=== PATIENT | male | born 1965 | race African-American/Black ===

== ENCOUNTER 2024-10-25 08:37 | Emergency (ER) | payer MEDICAID, OTHER ==
[~2024-10-25] VITALS: Ht 177.8 cm; Wt 83.4 kg
--- NOTE | 2024-10-25 09:07 | ED.PDOC ---
History of Present Illness HPI Comments 59 year old male with a a Hx of HTN, and Recent Back Surgery presents to the ED for the c/c of Right Flank pain. Pt states that he had Back Surgery 1x month ago, but has since stopped complying w/ his pain medication 2x weeks ago, because they make him "constipated". Pt notes that he has not been able to def ecate for the past few days, even notes of taking laxatives with no results. Pt notes of no alleviating factors, but a worsening factor of movement/sitting straight. No other symptoms or modifying factors reported at this time. Chief Complaint: Abdominal Pain Time Seen by MD: 09:01 Reviewed Notes: Nurses Notes, Medications, Allergies Allergies: Coded Allergies: Ibuprofen (Verified Allergy, Unknown, 10/25/24) Information Source: Patient Mode of Arrival: Wheelchair Severity: Moderate Timing: Days Duration: Since onset, Days Prehospital treatment: None Past Medical History PAST MEDICAL HISTORY: HTN Surgical History: Hernia Repair Family History Family History: Unknown Social History Smoker: Non-Smoker Alcohol: Denies ETOH Use Drugs: Denies Drug Use Lives In: Home Constitutional: denies: chills, diaphoresis, fatigue, fever, malaise, sweats, weakness, others EENTM: denies: blurred vision, double vision, ear bleeding, ear discharge, ear drainage, ear pain, ear ringing, eye pain, eye redness, hearing loss, mouth pain, mouth swelling, nasal discharge, nose bleeding, nose congestion, nose pain, photophobia, tearing, throat pain, throat swelling, voice changes, others Respiratory: denies: cough, hemoptysis, orthopnea, SOB at rest, shortness of breath, SOB with excertion, stridor, wheezing, others Cardiovascular: denies: chest pain, dizzy spells, diaphoresis, Dyspnea on exertion, edema, irregular heart beat, left arm pain, lightheadedness, palpitations, PND, syncope, others Gastrointestinal: denies: abdomen distended, abdominal pain, blood streaked bowels, constipated, diarrhea, dysphagia, difficulty swallowing, hematemesis, melena, nausea, poor appetite, poor fluid intake, rectal bleeding, rectal pain, vomiting, others Genitourinary: reports: flank pain; denies: burning, dysuria, frequency, hematuria, incontinence, penile discharge, penile sore, pain, testicle pain, testicle swelling, urgency, others Neurological: denies: dizziness, fainting, headache, left sided numbness, left sided weakness, numbness, paresthesia, pre-existing deficit, right sided numbness, right sided weakness, seizure, speech problems, tingling, tremors, weakness, others Musculoskeletal: reports: back pain; denies: gout, joint pain, joint swelling, muscle pain, muscle stiffness, neck pain, others Integumetry: denies: bruises, change in color, change in hair/nails, dryness, laceration, lesions, lumps, rash, wounds, others Allergic/Immunocompromised: denies: Difficulty Healing, Frequent Infections, Hives, Itching, others Hematologic/Lymphatic: denies: anemia, blood clots, easy bleeding, easy bruising, swollen glands, others Endocrine: denies: excessive hunger, excessive sweating, excessive thirst, excessive urination, flushing, intolerance to cold, intolerance to heat, unexplained weight gain, unexplained weight loss, others Psychiatric: denies: anxiety, bipolar disorder, depression, hopeless, panic disorder, schizophrenia, sleepless, suicidal, others All Other Systems: Reviewed and Negative Physical Exam General Appearance: Moderate Distress, Normal HEENT: Normal ENT Inspection, PERRL/EOMI, Pharynx Normal, TMs Normal Neck: Full Range of Motion, Non-Tender, Normal Respiratory: Chest Non-Tender, Lungs Clear, No Accessory Muscle Use, No Respiratory Distress, Normal Breath Sounds Cardiovascular: No Edema, No JVD, No Murmur, Normal Peripheral Pulses, Regular Rate/Rhythm Breast Exam: Deferred Gastrointestinal: No Pulsatile Mass, Normal Bowel Sounds, RLQ, Soft, Tenderness (RLQ), Other (Right CVA tenderness) Genitalia: Deferred Pelvic: Deferred Rectal: Deferred Extremities: No calf tenderness, Normal capillary refill, Normal inspection, Normal range of motion, Non-tender, No pedal edema Musculoskeletal : Location: Right Extremity Location: Back, Other (Recent back surgery) Apperance: Normal Neurologic: Alert, No Motor Deficits, Normal Mood Cerebellar Function: Normal Reflexes: Normal Skin: Dry, Normal Color, Warm Peripheral Pulses: 1+ carotid (R), 1+ carotid (L) Lymphatic: No Adenopathy Was a procedure done? Was a procedure done?: No Differential Dx Considerations may include: Back sprain ureterolithiasis constipation X-Ray, Labs, Meds, VS Vital Signs Date Time Temp Pulse Resp B/P (MAP) Pulse Ox O2 Delivery O2 Flow Rate FiO2 10/25/24 10:59 45 17 182/95 (124) 100 10/25/24 10:54 45 18 182/95 10/25/24 09:15 98.4 48 16 176/89 (118) 98 98.4 10/25/24 09:14 48 20 176/89 10/25/24 08:43 97.9 58 18 180/94 (122) 100 97.9 10/25/24 08:43 97.9 58 18 180/94 (122) 100 97.9 10/25/24 08:43 Room Air* 0 21 Lab Test 10/25/24 10:27 10/25/24 09:10 Range/Units Urine Color Yellow Yellow Urine Clarity Clear Clear Urine pH 7.0 5.0-9.0 Urine Specific [place] 1.028 1.001-1.035 Urine Protein Negative Negative Urine Ketones Negative Negative Urine Blood Negative Negative /uL Urine Nitrite Negative Negative Urine Bilirubin Negative Negative Urine Urobilinogen Normal Negative mg/dL Urine Leukocyte Esterase Negative Negative /uL Urine RBC <1 0 - 3 /hpf Urine Microscopic WBC < 1 0-3 /HPF Urine Squamous Epithelial Cells None seen <5 /hpf Urine Bacteria None seen None Seen /hpf Urine Glucose Normal Normal mg/dL White Blood Count 6.2 4.4-10.8 10^3/uL Red Blood Count 4.99 4.5-5.90 10^6/uL Hemoglobin 14.5 13.5-17.5 g/dL Hematocrit 43.0 41.0-53.0 % Mean Corpuscular Volume 86.2 80.0-100.0 fL Mean Corpuscular Hemoglobin 29.0 28.0-32.0 pg Mean Corpuscular Hemoglobin Concent 33.6 32.0-36.0 g/dL Red Cell Distribution Width 16.2 H 11.8-14.3 % Platelet Count 209 140-450 10^3/uL Mean Platelet Volume 9.4 6.9-10.8 fL Neutrophils (%) (Auto) 65.1 37.0-80.0 % Lymphocytes (%) (Auto) 23.7 10.0-50.0 % Monocytes (%) (Auto) 6.8 0.0-12.0 % Eosinophils (%) (Auto) 3.5 0.0-7.0 % Basophils (%) (Auto) 0.9 0.0-2.0 % Neutrophils # (Auto) 4.0 1.6-8.6 10 ^3/uL Lymphocytes # (Auto) 1.5 0.4-5.4 10 ^3/uL Monocytes # (Auto) 0.4 0-1.3 10 ^3/uL Eosinophils # (Auto) 0.2 0-0.8 10 ^3/uL Basophils # (Auto) 0.1 0-0.2 10 ^3/uL Nucleated Red Blood Cells 0.0 % Prothrombin Time 10.9 9.3-11.8 sec Prothrombin Time INR 1.03 0.9-1.15 Activated Partial Thromboplast Time 30.8 24.5-34.5 SEC Sodium Level 142 136-145 mmol/L Potassium Level 4.0 3.5-5.1 mmol/L Chloride Level 110 H 98-107 mmol/L Carbon Dioxide Level 24 20-31 mmol/L Anion Gap 8 5-15 Blood Urea Nitrogen 10 9-23 mg/dL Creatinine 1.01 0.700-1.30 mg/dL Glomerular Filtration Rate Calc 86 >90 mL/min BUN/Creatinine Ratio 9.9 L 10.0-20.0 Serum Glucose 95 74-106 mg/dL Calcium Level 9.9 8.7-10.4 mg/dL Magnesium Level 2.2 1.6-2.6 mg/dL Total Bilirubin 0.5 0.2-1.0 mg/dL Aspartate Amino Transferase (AST) 17 <34 U/L Alanine Aminotransferase (ALT) 12 7-40 U/L Alkaline Phosphatase 64 46-116 U/L Total Protein 6.8 5.7-8.2 g/dL Albumin 4.3 3.2-4.8 g/dL Lipase 35 12-53 U/L Current Medications Medications (Trade) Dose Ordered Sig/Ld Route Start Time Stop Time Status Last Admin Ondansetron HCl (Zofran) 4 mg ONCE ONCE IV 10/25/24 09:15 10/25/24 09:16 DC 10/25/24 09:12 Morphine Sulfate 2 mg ONCE ONCE IV 10/25/24 09:15 10/25/24 09:16 DC 10/25/24 09:14 Sodium Chloride 500 ml @ 500 mls/hr Q1H ONCE IVB 10/25/24 09:15 10/25/24 10:14 DC 10/25/24 09:12 Acetaminophen/ Hydrocodone Bitart ([employer] 10/325MG Tab) 1 tab ONCE ONCE PO 10/25/24 10:45 10/25/24 10:46 DC 10/25/24 10:53 PATIENT: IRMA FABIAN ACCT: [id number] UNIT: [id number] : 1965 LOC: ER ROOM / BED: / AGE / SEX: 59 / M ADM STATUS: REG ER SERVICE 1 ORDERING PHYSICIAN: SUZI CHRIS MD PROCEDURE(s): ABPLIV - CT AB PEL WITH IV CON ONLY REASON: Severe abdominal pain ORDER NUMBER(s): [id number], ACCESSION NUMBER(s): [id number] CT CT AB PEL WITH IV CON ONLY INDICATION: Severe abdominal pain EXAM DATE: 10/25/2024 10:31 AM COMPARISON: None RADIATION DOSE: CTDIvol: 13.05 mGy, DLP: 624.68 mGy*cm PROCEDURE: Helical CT images were obtained of the abdomen and pelvis with IV contrast Sagittal and coronal reconstructions are provided. ORAL CONTRAST: None. ADDITIONAL IMAGES / REFORMATS: None All CT scans at this medical facility are performed using dose modulation techniques as appropriate to a performed exam including the following: Automated exposure control was utilized; adjustment of the MA and/or KV according to patient size; and use of iterative reconstruction technique. FINDINGS: LUNG BASE: Normal. LIVER: Multiple SUBCENTIMETER cysts are seen in the liver. GALLBLADDER AND BILIARY TREE: No calcified gallstones. Normal caliber wall. No intra- or extrahepatic biliary ductal dilation. PANCREAS: Normal. SPLEEN: Normal. BOWEL: Normal. ADRENALS: Normal. KIDNEYS AND URETER: Normal. BLADDER: Mild anterior bladder wall thickening. REPRODUCTIVE ORGANS: Normal. LYMPH NODES:No lymphadenopathy. PERITONEUM: No ascites or free air. No other fluid collection. VESSELS: Scattered atherosclerotic calcifications are noted. RETROPERITONEUM: Normal. ABDOMINAL WALL: A lower abdominal wall mesh is seen. BONES: Scattered osseous degenerative changes are noted. IMPRESSION: No acute intraabdominal abnormality. X-Ray, Labs, Meds, VS Comment Patient came to the ER complaining of right CVA tenderness and right lower abdominal pain with constipation patient is being taken care of by [facility] CBC normal Urine negative CMP negative CT abdomen and pelvis all negative patient received the pain medication and will follow up with [facility] for further care you need to take some stool softener Time of 1ST Reevaluation: 09:32 Reevaluation 1ST: Unchanged Time of 2ND Reevaluation: 12:21 Reevaluation 2ND: Improved Consultation: PCP, Surgery (Orthopedist) Patient Education/Counseling: Diagnosis, Treatment, Prognosis, Need For Follow Up Family Education/Counseling: Diagnosis, Treatment, Prognosis, Need For Follow Up, No Family Present SEPSIS Sepsis Screen Physician Orders Ct Ab Pel With Iv Con Only (10/25/24 09:02) Sodium Chloride 0.9% (10/25/24 09:15) Vital Signs Date Time Temp Pulse Resp B/P (MAP) Pulse Ox O2 Delivery O2 Flow Rate FiO2 10/25/24 10:59 45 17 182/95 (124) 100 10/25/24 10:54 45 18 182/95 10/25/24 09:15 98.4 48 16 176/89 (118) 98 98.4 10/25/24 09:14 48 20 176/89 10/25/24 08:43 97.9 58 18 180/94 (122) 100 97.9 10/25/24 08:43 97.9 58 18 180/94 (122) 100 97.9 10/25/24 08:43 Room Air* 0 21 Laboratory Tests Test 10/25/24 09:10 White Blood Count 6.2 10^3/uL (4.4-10.8) Medications Medications Dose Ordered Sig/Ld Route Start Time Stop Time Status Last Admin Dose Admin Acetaminophen/ Hydrocodone Bitart 1 tab ONCE ONCE PO 10/25/24 10:45 10/25/24 10:46 DC 10/25/24 10:53 Morphine Sulfate 2 mg ONCE ONCE IV 10/25/24 09:15 10/25/24 09:16 DC 10/25/24 09:14 Ondansetron HCl 4 mg ONCE ONCE IV 10/25/24 09:15 10/25/24 09:16 DC 10/25/24 09:12 Sodium Chloride 500 ml @ 500 mls/hr Q1H ONCE IVB 10/25/24 09:15 10/25/24 10:14 DC 10/25/24 09:12 Departure 1 Departure Time of Disposition: 12:23 Impression: Primary Impression: Right flank pain Additional Impressions: Back pain with history of spinal surgery Constipation by delayed colonic transit Disposition: HOME / SELF CARE / HOMELESS Condition: Fair Additional Instructions: Push fluids and use laxative to softener Discharged With: Self Critical Care Note Critical Care Time?: No Stability Stability form required: No Heart Score Heart Score: Heart Score Response (Comments) Value History N/A 0 EKG N/A 0 Age 45-64 1 Risk Factors No known risk factors 0 Troponin N/A 0 Total 1 I personally scribed for SUZI CHRIS MD ([email or web address]) on 10/25/24 at 09:07. Electronically submitted by Brad Bowles ([email or web address]). I personally scribed for SUZI CHRIS MD ([email or web address]) on 10/25/24 at 11:33. Electronically submitted by Brad Bowles ([email or web address]). SUZI CHRIS MD Oct 25, 2024 09:07
[2024-10-25] MEDS: SODIUM CHLORIDE 0.9% 500 ML IVB ONE (09:12)
[2024-10-25] MEDS: SODIUM CHLORIDE 0.9% 1,000 ML IV ONE (09:12)
[2024-10-25] MEDS: ONDANSETRON HCL 4 MG/2 ML VIAL IV ONE (09:12)
[2024-10-25] MEDS: MORPHINE SULFATE 4 MG/ML SYR/VIAL IV ONE (09:14)
[2024-10-25 09:39] LABS: Basophils # (auto) 0.1 10 ^3/uL (0-0.2); Basophils % (auto) 0.9 % (0.0-2.0); Eosinophils # (auto) 0.2 10 ^3/uL (0-0.8); Eosinophils % (auto) 3.5 % (0.0-7.0); Hemoglobin 14.5 g/dL (13.5-17.5); Lymphocytes # (auto) 1.5 10 ^3/uL (0.4-5.4); Lymphocytes % (auto) 23.7 % (10.0-50.0); Mean Corpuscular Hgb Conc. 33.6 g/dL (32.0-36.0); Mean Corpuscular Volume 86.2 fL (80.0-100.0); Monocytes # (auto) 0.4 10 ^3/uL (0-1.3); Monocytes % (auto) 6.8 % (0.0-12.0); Neutrophils % (auto) 65.1 % (37.0-80.0); Platelet Count (auto) 209 10^3/uL (140-450); Red Blood Cells 4.99 10^6/uL (4.5-5.90); Red Cell Distribution Width 16.2 % (11.8-14.3); White Blood Cell 6.2 10^3/uL (4.4-10.8)
[2024-10-25 10:03] LABS: Alanine Aminotransferase 12 U/L (7-40); Albumin 4.3 g/dL (3.2-4.8); Alkaline Phosphatase 64 U/L (46-116); Anion Gap 8 (5-15); Aspartate Aminotransferase 17 U/L (<34); BUN/Creatinine Ratio 9.9 (10.0-20.0); Blood Urea Nitrogen 10 mg/dL (9-23); Calcium 9.9 mg/dL (8.7-10.4); Carbon Dioxide 24 mmol/L (20-31); Glucose 95 mg/dL (74-106); Magnesium 2.2 mg/dL (1.6-2.6); Sodium 142 mmol/L (136-145); Total Protein 6.8 g/dL (5.7-8.2)
[2024-10-25 10:04] LABS: Bilirubin, Total 0.5 mg/dL (0.2-1.0); INR 1.03 (0.9-1.15); Partial Thromboplastin Time 30.8 SEC (24.5-34.5); Prothrombin Time 10.9 sec (9.3-11.8)
[2024-10-25 10:07] LABS: Chloride 110 mmol/L (98-107)
[2024-10-25 10:21] LABS: Lipase 35 U/L (12-53)
[2024-10-25] MEDS: IOHEXOL 300 MG/ML 100ML BOTTLE IJ ONE (10:35)
[2024-10-25] MEDS: HYDROcodone-ACET 10/325MG TAB PO ONE (10:53)
[2024-10-25 11:19] LABS: Urine Bacteria None Seen /hpf (None Seen)
--- NOTE | 2024-10-25 11:22 | DVH ---
CT CT AB PEL WITH IV CON ONLY INDICATION: Severe abdominal pain EXAM DATE: 10/25/2024 10:31 AM COMPARISON: None RADIATION DOSE: CTDIvol: 13.05 mGy, DLP: 624.68 mGy*cm PROCEDURE: Helical CT images were obtained of the abdomen and pelvis with IV contrast Sagittal and co velma reconstructions are provided. ORAL CONTRAST: None. ADDITIONAL IMAGES / REFORMATS: None All CT s cans at this medical facility are performed using dose modulation techniques as appropriate to a perf ormed exam including the following: Automated exposure control was utilized; adjustment of the MA and /or KV according to patient size; and use of iterative reconstruction technique. FINDINGS: LUNG BASE: Normal. LIVER: Multiple SUBCENTIMETER cysts are seen in the liver. GALLBLADDER AND BILIARY TREE: No calcified gallstones. Normal caliber wall. No intra- or extrahepatic biliary ductal dilation. PANCREAS: Normal. SPLEEN: Normal. BOWEL: Normal. ADRENALS: Normal. KIDNEYS AND URETER: Normal. BLADDER: Mild anterior bladder wall thickening. REPRODUCTIVE ORGANS: Normal. LYMPH NODES:No lymphadenopathy. PERITONEUM: No ascites or free air. No other fluid collection. VESSELS: Scattered atherosclerotic calcifications are noted. RETROPERITONEUM: Normal. ABDOMINAL WALL: A lower abdominal wall mesh is seen. BONES: Scattered osseous degenerative changes are noted. IMPRESSION: No acute intraabdominal abnormality.
[2024-10-25 11:29] LABS: Urine Blood Negative /uL (Negative); Urine Clarity Clear (Clear); Urine Color Yellow (Yellow); Urine Protein, UAD Negative (Negative); Urine Specific Gravity 1.028 (1.001-1.035); Urine Squamous Epithelial Cell None Seen /hpf (<5); Urine Urobilinogen Normal (Negative); Urine WBC < 1 /HPF (0-3)
[2024-10-25 12:47] VITALS: BP 166/86; PULSE 49; RESP 20; TEMP 98.3; O2SAT 100
== END 2024-10-25 12:48 | disposition home or self-care (01) ==
LOC: ER 08:37
DX: K59.01 Slow transit constipation (principal); M54.9 Dorsalgia, unspecified; R10.31 Right lower quadrant pain; I10 Essential (primary) hypertension; Z88.6 Allergy status to analgesic agent; Z98.890 Other specified postprocedural states
CPT/HCPCS: 36415; 74177; 80053; 81001; 83690; 83735; 85025; 85610; 85730; 96361; 96374; 96375; 99285; J2270; J2405; J7040; Q9967